=== PATIENT | male | born 1960 | race Caucasian/White ===

== ENCOUNTER 2023-07-20 02:46 | Emergency (ER) | payer SELFPAY ==
[~2023-07-20] VITALS: Ht 160 cm; Wt 55.0 kg
[2023-07-20 02:53] VITALS: O2SAT 96
[2023-07-20] MEDS: BACITRACIN ZINC OINT UDPKT TOP ONE (05:42)
[2023-07-20 06:08] LABS: BASOPHILS % 0.9 % (0.0-2.0); EOSINOPHILS % 1.6 % (0.0-5.0); HEMATOCRIT. 40.7 % (42.0-52.0); HEMOGLOBIN. 14.1 g/dL (14.0-18.0); MEAN CORPUSCULAR HEMOGLOBIN 33.6 pg (28.0-32.0); MEAN CORPUSCULAR HGB CONC 34.6 g/dL (31.0-37.0); MEAN CORPUSCULAR VOLUME 97.1 fL (80.0-94.0); MEAN PLATELET VOLUME 6.5 fl (7.4-10.4); MONOCYTES % 9.7 % (2.0-8.0); NEUTROPHILS % 57.8 % (40.0-76.0); PLATELET 192 x1000/uL (130-400); RED BLOOD CELL COUNT 4.19 mill/uL (4.7-6.1); RED CELL DISTRIBUTION WIDTH 13.2 % (11.6-14.6); WHITE BLOOD COUNT 4.9 x1000/uL (4.5-11.0)
[2023-07-20 06:18] LABS: INR 0.9; PARTIAL THROMBOPLASTIN TIME 25.2 sec (23.4-31.0); PROTHROMBIN TIME 10.6 sec (9.6-11.0)
[2023-07-20 06:21] LABS: CHLORIDE 104 mEq/L (98-107); POTASSIUM 3.8 mEq/L (3.5-5.1); SODIUM 139 mEq/L (136-145)
[2023-07-20 06:22] LABS: CALCIUM 8.2 mg/dL (8.7-10.4); CARBON DIOXIDE 23 mEq/L (21-32)
[2023-07-20 06:27] LABS: CREATININE 0.7 mg/dL (0.6-1.3); GLUCOSE 102 mg/dL (70-105)
[2023-07-20 06:29] LABS: ALANINE AMINOTRANSFERASE 50 IU/L (10-49); ASPARTATE AMINOTRANSFERASE 80 IU/L (<34)
[2023-07-20 06:30] LABS: BILIRUBIN TOTAL 0.5 mg/dL (0.1-1.0)
[2023-07-20 06:33] LABS: UREA NITROGEN BLOOD < 5 mg/dL (9-23)
[2023-07-20 07:01] VITALS: BP 151/76; PULSE 75; RESP 12; TEMP 98.9
== END 2023-07-20 07:02 | disposition home or self-care (01) ==
LOC: ER 02:46
DX: S00.81XA Abrasion of other part of head, initial encounter (principal); X58.XXXA Exposure to other specified factors, initial encounter; Y93.89 Activity, other specified; Y92.89 Other specified places as the place of occurrence of the external cause; Y99.8 Other external cause status
CPT/HCPCS: 36415; 80053; 85025; 86850; 86900; 99283